=== PATIENT | female | born 1960 | race Caucasian/White ===

== ENCOUNTER 2016-11-24 08:28 | Day surgery (SDC) | payer BC, OTHER ==
[~2016-11-24 08:28] MED LIST: LIDOCAINE HCL 1% MPF SOL ONE; PROPOFOL 500 MG/50 ML EMU IV ONE
[2016-11-24] MEDS ORDERED: GLYCOPYRROLATE 0.2 MG/ML SOL ONE (10:14)
[2016-11-24 10:53] VITALS: BP 131/77; PULSE 75; RESP 18; TEMP 97.6; O2SAT 95
== END 2016-11-24 11:10 | disposition home or self-care (01) | DRG 951 ==
LOC: SURG 08:28
PROVIDERS: ATTEND Surgery
DX: Z12.11 Encounter for screening for malignant neoplasm of colon (principal); K57.30 Diverticulosis of large intestine without perforation or abscess without bleeding; Z83.71 Family history of colonic polyps
CPT/HCPCS: J7643; J2001; J2704

== ENCOUNTER 2017-01-25 18:31 | Emergency (ER) | payer OTHER ==
[2017-01-25 18:40] VITALS: RESP 18; TEMP 98.1
[2017-01-25 19:30] LABS: ALBUMIN 2.8 gm/dl (3.4-5.0); CALCIUM 9.3 mg/dl (8.5-10.1); POTASSIUM 3.9 mMol/L (3.5-5.1)
[2017-01-25 19:33] LABS: BASOPHILS % (AUTO) 1 % (0-3); EOSINOPHILS % (AUTO) 2 % (0-9); HEMATOCRIT 35 % (35-47); MEAN CORPUSCULAR HGB CONC 32.8 gm/dl (32.0-36.0); MEAN CORPUSCULAR VOLUME 80 fL (81-99); MONOCYTES % (AUTO) 6.9 % (0-12); NEUTROPHILS % (AUTO) 75.3 % (37-80)
[2017-01-25 20:12] VITALS: BP 137/84; PULSE 99; O2SAT 92
== END 2017-01-25 21:10 | disposition home or self-care (01) | DRG 688 ==
LOC: ED 18:31
DX: D49.59 Neoplasm of unspecified behavior of other genitourinary organ (principal)
CPT/HCPCS: 36415; 74177; 80053; 85025; 99284; Q9967

== ENCOUNTER 2017-08-02 16:40 | Emergency (ER) | payer OTHER ==
[2017-08-02 17:06] VITALS: BP 105/71; PULSE 107; RESP 18; TEMP 97; O2SAT 94
== END 2017-08-02 18:33 | disposition home or self-care (01) | DRG 864 ==
LOC: ED 16:40
DX: R50.9 Fever, unspecified (principal); N39.0 Urinary tract infection, site not specified; Z98.890 Other specified postprocedural states
CPT/HCPCS: 99282; 99283

== ENCOUNTER 2017-08-18 16:42 | Emergency (ER) | payer OTHER ==
[2017-08-18 16:49] VITALS: RESP 20; O2SAT 99
[2017-08-18] MEDS ORDERED: PROCHLORPERAZINE EDISYLATE 5 MG/ML SOL IM ONE (17:48)
[2017-08-18] MEDS ORDERED: PROCHLORPERAZINE EDISYLATE 5 MG/ML SOL ONE (18:04)
[2017-08-18 18:37] VITALS: BP 121/78; PULSE 99; TEMP 97.8
== END 2017-08-18 19:13 | disposition home or self-care (01) | DRG 761 ==
LOC: ED 16:42
DX: N83.8 Other noninflammatory disorders of ovary, fallopian tube and broad ligament (principal); R10.9 Unspecified abdominal pain; R11.2 Nausea with vomiting, unspecified; Z85.43 Personal history of malignant neoplasm of ovary
CPT/HCPCS: 74000; 99283; J0780

== ENCOUNTER 2018-03-20 15:56 | Emergency (ER) | payer OTHER ==
[2018-03-20 16:03] VITALS: BP 126/80; PULSE 91; RESP 16; TEMP 97.3; O2SAT 96
[2018-03-20] MEDS ORDERED: KETOROLAC TROMETHAMINE 30 MG/ML SOL IM ONE (16:10)
[2018-03-20] MEDS ORDERED: APAP/OXYCODONE 325/5 TAB PO ONE (16:10)
[2018-03-20] MEDS ORDERED: APAP/OXYCODONE 325/5 TAB ONE (16:18)
[2018-03-20] MEDS ORDERED: KETOROLAC TROMETHAMINE 30 MG/ML SOL ONE (16:18)
[2018-03-20] MEDS ORDERED: CYCLOBENZAPRINE 10 MG TAB PO ONE (16:24)
[2018-03-20] MEDS ORDERED: CYCLOBENZAPRINE 10 MG TAB ONE (16:32)
== END 2018-03-20 17:08 | disposition home or self-care (01) | DRG 552 ==
LOC: ED 15:56
DX: M54.5 Low back pain (principal); M25.561 Pain in right knee
CPT/HCPCS: 73562; 96372; 99283; J1885; A9270-GY